=== PATIENT | female | born 1950 | race Caucasian/White ===

== ENCOUNTER 2022-09-29 01:00 | Outpatient (CLI) | payer MEDICARE | END 2022-09-29 01:01 | disposition critical access hospital (66) | LOC: EMS 01:00 | DX: R19.7 Diarrhea, unspecified (principal); R11.10 Vomiting, unspecified; R55 Syncope and collapse | CPT/HCPCS: A0425; A0427 ==

== ENCOUNTER 2022-09-29 01:50 | Emergency (ER) | payer MEDICARE ==
[2022-09-29] MEDS ORDERED: SODIUM CHLORIDE 0.9% 1,000 ML IV STA (02:21)
[2022-09-29 02:34] LABS: BASOPHILS % (AUTO) 0.3 %; EOSINOPHILS % (AUTO) 0.3 %; HCT - HEMATOCRIT 35.5 % (37.0-47.0); HGB - HEMOGLOBIN 11.9 g/dL (12.0-16.0); LYMPHOCYTES # (AUTO) 0.5 10^3/uL (1.5-3.5); LYMPHOCYTES % (AUTO) 5.1 %; MEAN CORPUSCULAR HGB CONC 33.5 g/dL (32.0-36.0); MEAN CORPUSCULAR VOLUME 95.4 fL (81.0-99.0); MEAN PLATELET VOLUME 9.1 fL (7.9-10.8); MONOCYTES # (AUTO) 0.8 10^3/uL (0.0-1.0); MONOCYTES % (AUTO) 7.9 %; NEUTROPHILS # (AUTO) 8.6 10^3/uL (1.5-6.6); NEUTROPHILS % (AUTO) 86.3 %; PLT - PLATELET COUNT 195 10^3/uL (130-450); RED BLOOD COUNT 3.72 10^6/uL (4.20-5.40); RED CELL DISTRIBUTION WIDTH 11.3 % (12.0-15.0)
--- NOTE | 2022-09-29 02:36 | ED Physician Documentation ---
History of Present Illness - Stated complaint Stated Complaint: NEAR FAINTING - Chief complaint Chief Complaint: Neuro - History obtained from History obtained from: Patient, EMS - Additonal information Additional information: The patient comes to the emergency department via EMS for chief complaint of generalized weakness and near syncope this evening. The patient has had diarrhea for approximately 1 month, worsening, after being first on a course of clindamycin and then on a course of Augmentin for an abscessed tooth. She states that she has been trying to drink plenty of fluid and did not vomit until today. She denies any fevers or chills. No blood in her stools. She states she is having multiple runny stools and copious flatus. She states she had been lying down in bed and when she sat up, she felt very lightheaded. She then tried to stand up and just felt generally weak so ended up sitting back down. EMS was called at that time. The patient denies any shortness of breath or chest pain. She has no chronic abdominal conditions, specifically of the intestines. Nobody else has been ill with anything recently. She denies any focal abdominal pain. She has some mild generalized abdominal discomfort. She was given IV Zofran in route with EMS and states that has helped her symptoms quite a bit. Review of Systems Ten Systems: 10 systems reviewed and negative Constitutional: reports: Reviewed and negative Eyes: reports: Reviewed and negative Ears: reports: Reviewed and negative Nose: reports: Reviewed and negative Throat: reports: Reviewed and negative Cardiac: reports: Reviewed and negative Respiratory: reports: Reviewed and negative GI: reports: Abdominal Pain, Nausea, Vomiting : reports: Reviewed and negative Skin: reports: Reviewed and negative Musculoskeletal: reports: Reviewed and negative Neurologic: reports: Reviewed and negative Psychiatric: reports: Reviewed and negative Endocrine: reports: Reviewed and negative Immunocompromised: reports: Reviewed and negative PD PAST MEDICAL HISTORY - Present Medications Home Medications: Ambulatory Orders Medication Instructions Recorded Confirmed Ondansetron Odt [Zofran] 4 mg TL Q6H PRN #14 tablet 09/29/22 - Allergies Allergies/Adverse Reactions: Allergies Allergy/AdvReac Type Severity Reaction Status Date / Time No Known Drug Allergies Allergy Verified 09/29/22 01:54 PD ED PE NORMAL - Vitals Vital signs reviewed: Yes - General General: Alert and oriented X 3, No acute distress, Well developed/nourished - HEENT HEENT: Atraumatic, PERRL, EOMI, Moist mucous membranes - Neck Neck: Supple, no meningeal sign - Cardiac Cardiac: RRR, No murmur, Strong equal pulses - Respiratory Respiratory: No respiratory distress, Clear bilaterally - Abdomen Abdomen: Soft, Non distended, Other (Mild To moderate tenderness right abdomen. No left abdominal tenderness.) - Derm Derm: Normal color, Warm and dry, No rash - Extremities Extremities: No deformity, No edema - Neuro Neuro: Alert and oriented X 3 - Psych Psych: Normal mood, Normal affect Results - Vitals Vitals: Oxygen O2 Source Room air - Labs Labs: Laboratory Tests 09/29/22 09/29/22 02:27 02:27 WBC 10.0 RBC 3.72 L Hgb 11.9 L Hct 35.5 L MCV 95.4 MCH 32.0 H MCHC 33.5 RDW 11.3 L Plt Count 195 MPV 9.1 Neut # (Auto) 8.6 H Lymph # (Auto) 0.5 L [place] # (Auto) 0.8 Eos # (Auto) 0.0 Baso # (Auto) 0.0 Absolute Nucleated RBC 0.00 Nucleated RBC % 0.0 Sodium 137 Potassium 3.7 Chloride 105 Carbon Dioxide 24 Anion Gap 8.0 BUN 19 Creatinine 0.7 Estimated GFR (MDRD) 83 L Glucose 123 H Calcium 8.3 L Total Bilirubin 1.1 H AST 22 ALT 20 Alkaline Phosphatase 69 Total Protein 6.1 L Albumin 3.5 Globulin 2.6 Albumin/Globulin Ratio 1.3 Lipase 44 PD Medical Decision Making - ED course Complexity details: reviewed results, re-evaluated patient, considered differe janae, d/w patient ED course: The patient was treated with 2 L of IV fluid and worked up with laboratory studies. A stool sample was also ordered to eval for C. difficile. The pt was able to produce a stool sample eventually, but it was quite well-formed, and could not be analyzed for C. diff, per lab. The pt was able to ambulate in the ED. Her labs were unremarkable. I have advised her that if she has more diarrhea, she can have her doctor's office send it for analysis. Departure - Departure Disposition: 01 Home, Self Care Clinical Impression: Dehydration, Near syncope, Orthostatic hypotension Diarrhea Qualifiers: Diarrhea type: unspecified type Qualified Code(s): R19.7 - Diarrhea, unspecified Condition: Stable Instructions: ED Dehydration, ED Diet Vomiting Diarrhea Prescriptions: Ondansetron Odt [Zofran] 4 mg TL Q6H PRN #14 tablet PRN Reason: Nausea / Vomiting Comments: Your labs look very good today. The lab could not do the C. difficile test on your stool because it was too firm and well formed. While this does make the probability of C. difficile less likely, it is still important for you to follow-up on the issue of your ongoing diarrhea, should your diarrhea could recur. Please make an appointment with your primary doctor to be seen for this. We have given you some supplies so that if you have diarrhea again, you may catch a stool sample and take it to your doctor's office or the walk-in. For now, you have been hydrated thoroughly in the emergency department and should continue to drink lots of water at home. You may take the nausea medication as needed. The prescription for this has been electronically transmitted to the [facility] pharmacy in [place]. Discharge Date/Time: 09/29/22 06:34
[2022-09-29 02:46] LABS: ALBUMIN 3.5 g/dL (3.2-5.5); ALBUMIN/GLOBULIN RATIO 1.3 (1.0-2.2); BILIRUBIN,TOTAL 1.1 mg/dL (0.2-1.0); CALCIUM 8.3 mg/dL (8.5-10.3); CREATININE 0.7 mg/dL (0.4-1.0); POTASSIUM 3.7 mmol/L (3.5-5.0); TOTAL PROTEIN 6.1 g/dL (6.7-8.2)
[2022-09-29 05:48] VITALS: BP 144/71
== END 2022-09-29 06:34 | disposition home or self-care (01) ==
LOC: EDBD → ED 01:50
DX: E86.0 Dehydration (principal); I95.1 Orthostatic hypotension; R19.7 Diarrhea, unspecified
CPT/HCPCS: 36415; 80053; 83690; 85025; 87493; 99284